=== PATIENT | male | born 1995 | race Caucasian/White ===

== ENCOUNTER 2019-01-17 14:59 | Emergency (ER) | payer BC ==
[2019-01-17 15:07] VITALS: BP 150/69
--- NOTE | 2019-01-17 15:42 | ED Physician Documentation ---
PD HPI UPPER EXT INJURY - Stated complaint Stated Complaint: LT WRIST INJURY - Chief complaint Chief Complaint: Ext Problem - History obtained from History obtained from: Patient, Family, Friend - History of Present Illness Location: Left, Wrist Type of injury: Fall Where injury occurred: Work Timing - onset: Today Timing - duration: Minutes Timing - details: Abrupt onset, Still present Improved by: Rest, Ice, Immobilization Worsened by: Moving, Palpating Associated symptoms: Swelling. No: Weakness, Numbness Contributing factors: No: Anticoagulated, Prior ortho surgery Similar symptoms before: Has not had sx before Recently seen: Not recently seen - Additonal information Additional information: 23-year-old male was up on a scaffolding about 7 feet when he fell from the scaffolding landing on his left side. The majority of the force was absorbed by the left wrist over the ulnar surface. He has swelling and pain over the radial surface and pain with flexion extension of the wrist. He did not injure himself otherwise in the fall he denies any chest pain abdominal pain or hip pain. He did have some contusion to the left calf and foot but states those injuries are minimal. Review of Systems Constitutional: denies: Fever, Chills Eyes: denies: Decreased vision Ears: denies: Ear pain Nose: denies: Congestion Throat: denies: Sore throat Cardiac: denies: Chest pain / pressure, Palpitations Respiratory: denies: Dyspnea, Cough GI: denies: Abdominal Pain, Nausea, Vomiting : denies: Dysuria, Frequency Skin: denies: Rash Musculoskeletal: reports: Extremity pain, Joint pain, Joint swelling. denies: Neck pain, Back pain Neurologic: denies: Generalized weakness, Focal weakness, Numbness PD PAST MEDICAL HISTORY - Past Medical History Past Medical History: No - Past Surgical History Past Surgical History: No - Present Medications Home Medications: Ambulatory Orders Medication Instructions Recorded Confirmed Hydrocodone/Acetaminophen 1 - 2 each PO Q6H PRN #14 tablet 01/17/19 [Hydrocodon-Acetaminophen 5-325] - Allergies Allergies/Adverse Reactions: Allergies Allergy/AdvReac Type Severity Reaction Status Date / Time No Known Drug Allergies Allergy Verified 01/17/19 15:02 - Social History Does the pt smoke?: No Smoking Status: Never smoker Does the pt drink ETOH?: Yes Does the pt have substance abuse?: No - Immunizations Immunizations are current?: Yes PD ED PE NORMAL - Vitals Vital signs reviewed: Yes (hypertensive ) - General General: Alert and oriented X 3, No acute distress, Well developed/nourished - HEENT HEENT: Atraumatic, PERRL, EOMI - Neck Neck: Supple, no meningeal sign - Respiratory Respiratory: No respiratory distress - Derm Derm: Normal color, Warm and dry, No rash - Extremities Extremities: No deformity, Other (There is pain and swelling over the radial surface of the distal left radius. The distal n/v is intact. ) - Neuro Neuro: Alert and oriented X 3, faculty member 2-12 intact, No motor deficit, No sensory deficit, Normal speech Eye Opening: Spontaneous Motor: Obeys Commands Verbal: Oriented GCS Score: 15 - Psych Psych: Normal mood, Normal affect Results - Vitals Vitals: Vital Signs - 24 hr 01/17/19 15:03 Temperature 37.4 C Heart Rate 82 Blood Pressure 150/69 H O2 Saturation 100 Oxygen O2 Source Room air - Rads (name of study) wrist Radiology: Prelim report reviewed (Impression: Ulnar styloid, radial metaphyseal, and scaphoid waist fractures.), EMP read indepedently, See rad report Procedures - Splint (location) wrist left Splint applied by: Tech Type of splint: Fiberglass, Thumb spica, Sugar tong Other: Patient tolerated well, No complications, Neurovascular intact, Good alignment PD MEDICAL DECISION MAKING - ED course Complexity details: reviewed results, re-evaluated patient, considered differential, d/w patient, d/w family ED course: 23-year-old male with a left wrist fracture after fall off a scaffolding has a fracture of the waist of the scaphoid and additional fractures of the distal radius. He is placed into a thumb spica and sugar tong splint and referred to orthopedics for facilitation of hand surgeon consultation. Departure - Departure Disposition: 01 Home, Self Care Clinical Impression: Fracture of navicular bone of hand Qualifiers: Encounter type: initial encounter Scaphoid bone location: middle third Fracture type: closed Fracture alignment: displaced Laterality: left Qualified Code(s): S62.022A - Displaced fracture of middle third of navicular [scaphoid] bone of left wrist, initial encounter for closed fracture Distal radius fracture, left Qualifiers: Encounter type: initial encounter Fracture type: closed Fracture morphology: other fracture Qualified Code(s): S52.592A - Other fractures of lower end of left radius, initial encounter for closed fracture Condition: Stable Instructions: ED Fx Wrist Navicular Conf Follow-Up: [facility] [Provider Group] Prescriptions: Hydrocodone/Acetaminophen [Hydrocodon-Acetaminophen 5-325] 1 - 2 each PO Q6H PRN #14 tablet PRN Reason: pain Comments: The fracture you have will likely need a surgical repair of the scaphoid. This will need to be done by a hand surgeon. Follow up with the orthopedic clinic for help in facilitating a visit to the hand surgeon. Forms: Activity restrictions
--- NOTE | 2019-01-17 15:55 | XRAY Report ---
Reason: radial wrist injury Procedure Date: 01/17/2019 Accession Number: [id number] / [id number] Procedure: XR - Wrist 3 View LT CPT Code: FULL RESULT: EXAM: LEFT WRIST RADIOGRAPHY EXAM DATE: 01/17/2019 03:25 PM. CLINICAL HISTORY: Fall. Radial wrist injury. Pain and swelling. COMPARISON: None. TECHNIQUE: 3 views. FINDINGS: Bones: Scaphoid waist fracture. Displaced radial styloid tip fracture. Comminuted dorsally impacted radial metaphyseal fracture with intra-articular extension. Joints: Normal. No subluxations. Soft Tissues: Associated soft tissue swelling. IMPRESSION: Ulnar styloid, radial metaphyseal, and scaphoid waist fractures. RADIA
== END 2019-01-17 16:25 | disposition home or self-care (01) ==
LOC: ED 14:59
DX: S62.022A Displaced fracture of middle third of navicular [scaphoid] bone of left wrist, initial encounter for closed fracture (principal); S52.592A Other fractures of lower end of left radius, initial encounter for closed fracture; W17.89XA Other fall from one level to another, initial encounter; Y99.0 Civilian activity done for income or pay
CPT/HCPCS: 29125; 99283

== ENCOUNTER 2020-11-20 08:00 | Outpatient (CLI) | payer BC | END 2020-11-20 08:01 | disposition home or self-care (01) | LOC: COV 08:00 | PROVIDERS: ATTEND Family Medicine | DX: Z20.822 Contact with and (suspected) exposure to COVID-19 (principal) ==

== ENCOUNTER 2023-06-14 11:18 | Emergency (ER) | payer OTHER ==
[2023-06-14 11:33] VITALS: BP 178/93; O2SAT 99
--- NOTE | 2023-06-14 11:36 | ED Physician Documentation ---
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 Fell off and landed directly on the left, nondominant elbow. It is an isolated injury. Declines pain medication on initial evaluation.) PD PAST MEDICAL HISTORY - Past Surgical History Past Surgical History: No - Present Medications Home Medications: Ambulatory Orders Medication Instructions Recorded Confirmed Hydrocodone/Acetaminophen 1 - 2 each PO Q6H PRN #14 tablet 01/17/19 [Hydrocodon-Acetaminophen 5-325] - Allergies Allergies/Adverse Reactions: Allergies Allergy/AdvReac Type Severity Reaction Status Date / Time No Known Drug Allergies Allergy Verified 06/14/23 11:27 - Social History Does the pt smoke?: No Smoking Status: Never smoker Does the pt drink ETOH?: Yes Does the pt have substance abuse?: No - Immunizations Immunizations are current?: Yes PD ED PE NORMAL - Vitals Vital signs reviewed: Yes - General General: Alert and oriented X 3, No acute distress - HEENT HEENT: EOMI, Other (Slight anisocoria, left larger than right, patient states pre-existing) - Neck Neck: Supple, no meningeal sign, No bony TTP - Cardiac Cardiac: RRR, No murmur - Respiratory Respiratory: No respiratory distress, Clear bilaterally - Abdomen Abdomen: Non tender - Back Back: No CVA TTP, No spinal TTP - Derm Derm: Normal color, Warm and dry - Extremities Extremities: Other (see mdm- text box too small) - Neuro Neuro: Alert and oriented X 3, Normal speech Results - Vitals Vitals: Vital Signs - 24 hr 06/14/23 11:22 Temperature 36.8 C Heart Rate 97 Respiratory 16 Rate Blood Pressure 178/93 H O2 Saturation 99 Oxygen O2 Source Room air - Labs Labs: Laboratory Tests 06/14/23 06/14/23 06/14/23 12:12 12:12 12:12 WBC 8.5 RBC 5.33 Hgb 15.5 Hct 47.0 MCV 88.2 MCH 29.1 MCHC 33.0 RDW 12.8 Plt Count 247 MPV 11.3 Neut # (Auto) 6.4 Lymph # (Auto) 1.4 L Woods # (Auto) 0.6 Eos # (Auto) 0.1 Baso # (Auto) 0.0 Absolute Nucleated RBC 0.00 Nucleated RBC % 0.0 PT 11.8 INR 1.1 Sodium 140 Potassium 3.7 Chloride 104 Carbon Dioxide 29 Anion Gap 7.0 BUN 13 Creatinine 1.0 Estimated GFR (MDRD) 90 Glucose 106 H Calcium 9.8 Procedures - Splint (location) - Minor LUE Splint applied by: Physician Type of splint: Fiberglass, Long arm, Posterior Other: Patient tolerated well, No complications, Sling provided PD Medical Decision Making - ED course ED course: LUE exam: Significant swelling over the left olecranon bursa consistent with hematoma with limited range of motion related to same. Over the medial and left lateral epicondyles there really is no tenderness. There is an abrasion over the bursa. No tenderness at the shoulder or wrist. Normal radial pulses and sensation in the hand. 28-year-old gentleman with isolated left elbow injury. There is an abrasion over the olecranon but pretty shallow, not representing an open fracture. Imaging shows complex comminuted olecranon fracture and Case discussed by phone with our orthopedist, Dr. Virk who recommends transfer to [facility] given the complexity. He was excepted to [facility] ED by orthopedic traumatologist, Dr. Marco Sánchez and cobras are completed. Patient repeatedly declined any pain medication for this. He Departure - Departure Disposition: 02 Transfer Acute Care Hosp Clinical Impression: Fracture of left olecranon process Qualifiers: Encounter type: initial encounter Fracture type: closed Qualified Code(s): S52.022A - Displaced fracture of olecranon process without intraarticular extension of left ulna, initial encounter for closed fracture Condition: Serious Forms: PCP List
[2023-06-14] MEDS: TETANUS/DIPHTHERIA/PERTUSSIS 0.5 ML SYRINGE IM ONE ×2 (11:55→11:59)
--- NOTE | 2023-06-14 12:00 | XRAY Report ---
PROCEDURE: Elbow 3 View LT INDICATIONS: elbow inj TECHNIQUE: 3 views of the elbow were acquired. COMPARISON: None. FINDINGS: Bones: Acute comminuted fracture involving olecranon is seen with proximal and dorsal displacement o f fractured fragments and up to 1.9 cm diastases at fracture site. No suspicious bony lesions. Soft tissues: No significant effusion. No suspicious soft tissue calcifications or masses. Signifi cant dorsal elbow soft tissue swelling is seen. IMPRESSION: Acute comminuted and displaced proximal olecranon fracture with dorsal soft tissue swelling. Reviewed by: Pb Klein MD on 06/14/2023 11:58 AM PDT Approved by: Pb Klein MD on 06/14/2023 11:58 AM PDT Station ID: [id number]
[2023-06-14 12:18] LABS: BASOPHILS % (AUTO) 0.4 %; EOSINOPHILS # (AUTO) 0.1 10^3/uL (0.0-0.7); EOSINOPHILS % (AUTO) 0.6 %; HGB - HEMOGLOBIN 15.5 g/dL (14.0-18.0); LYMPHOCYTES # (AUTO) 1.4 10^3/uL (1.5-3.5); LYMPHOCYTES % (AUTO) 16.2 %; MEAN CORPUSCULAR HEMOGLOBIN 29.1 pg (27.0-31.0); MEAN CORPUSCULAR VOLUME 88.2 fL (80.0-94.0); MEAN PLATELET VOLUME 11.3 fL (7.4-11.4); MONOCYTES # (AUTO) 0.6 10^3/uL (0.0-1.0); MONOCYTES % (AUTO) 6.5 %; NEUTROPHILS # (AUTO) 6.4 10^3/uL (1.5-6.6); NEUTROPHILS % (AUTO) 75.6 %; PLT - PLATELET COUNT 247 10^3/uL (130-450); RED BLOOD COUNT 5.33 10^6/uL (4.70-6.10); RED CELL DISTRIBUTION WIDTH 12.8 % (12.0-15.0); WHITE BLOOD COUNT 8.5 x10^3/uL (4.8-10.8)
[2023-06-14 12:23] LABS: INR 1.1 (0.8-1.2); PT - PROTHROMBIN TIME 11.8 secs (9.9-12.6)
[2023-06-14 12:30] LABS: CALCIUM 9.8 mg/dL (8.5-10.3); POTASSIUM 3.7 mmol/L (3.5-4.5)
[2023-06-14] MEDS ORDERED: IBUPROFEN 800 MG TABLET PO STA (15:16)
[2023-06-14] MEDS ORDERED: oxyCODONE 5 MG TABLET PO STA (15:16)
== END 2023-06-14 15:30 | disposition short-term general hospital (02) ==
LOC: ED 11:18
DX: S52.022A Displaced fracture of olecranon process without intraarticular extension of left ulna, initial encounter for closed fracture (principal); W17.89XA Other fall from one level to another, initial encounter; Y99.0 Civilian activity done for income or pay; Z23 Encounter for immunization; Z20.822 Contact with and (suspected) exposure to COVID-19
CPT/HCPCS: 1040M; 29105; 36415; 73080; 80048; 85025; 85610; 87635; 90715; 99284; 99285; A9270

== ENCOUNTER 2023-06-26 07:39 | Emergency (ER) | payer BC, OTHER ==
[2023-06-26] MEDS ORDERED: KETOROLAC 60 MG/2 ML VIAL IM STA (08:20)
[2023-06-26] MEDS ORDERED: ONDANSETRON ODT 4 MG TABLET TL STA (08:20)
[2023-06-26] MEDS ORDERED: HYDROmorphone 1 MG/ML CARPUJECT IM STA (08:20)
[2023-06-26 08:34] VITALS: O2SAT 100
--- NOTE | 2023-06-26 10:06 | ED Physician Documentation ---
History of Present Illness - Stated complaint Stated Complaint: COMPLICATIONS FROM SURGERY - Chief complaint Chief Complaint: Ext Problem - History obtained from History obtained from: Patient, Family - History of Present Illness Timing: Today - Additonal information Additional information: 28-year-old Rafiq 8Haight fell off of a roof on 14 June. He was evaluated here and sent to [facility] for a comminuted fracture of the left olecranon. 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 He has been taking 1000 mg of acetaminophen and 5 mg of oxycodone for pain control. He had his last dose at 5:30 AM. Review of Systems Constitutional: denies: Fever Ears: denies: Ear pain Nose: denies: Congestion Throat: denies: Sore throat Respiratory: denies: Cough GI: denies: Vomiting, Diarrhea : denies: Dysuria, Frequency PD PAST MEDICAL HISTORY - Past Medical History Past Medical History: Yes - Past Surgical History Past Surgical History: No Ortho: Other - Present Medications Home Medications: Ambulatory Orders Medication Instructions Recorded Confirmed Hydrocodone/Acetaminophen 1 - 2 each PO Q6H PRN #14 tablet 01/17/19 [Hydrocodon-Acetaminophen 5-325] - Allergies Allergies/Adverse Reactions: Allergies Allergy/AdvReac Type Severity Reaction Status Date / Time No Known Drug Allergies Allergy Verified 06/14/23 11:27 - Social History Does the pt smoke?: No Smoking Status: Never smoker Does the pt drink ETOH?: Yes Does the pt have substance abuse?: No - Immunizations Immunizations are current?: Yes - POLST Patient has POLST: No PD ED PE NORMAL - Vitals Vital signs reviewed: Yes (hpyertensive) - General General: Alert and oriented X 3, Well developed/nourished, Other (appears uncomfortable ) - HEENT HEENT: Atraumatic, PERRL, EOMI - Cardiac Cardiac: RRR, No murmur - Respiratory Respiratory: No respiratory distress, Clear bilaterally - Abdomen Abdomen: Normal bowel sounds, Soft, Non tender - Back Back: No CVA TTP, No spinal TTP - Derm Derm: Normal color, Warm and dry, No rash - Extremities Extremities: Other (The dressing and splint is taken off of the patient's elbow and examined. He did have some oozing of blood into the dressing. No signs of infection or dehiscence.) - Neuro Neuro: Alert and oriented X 3, recooperer 2-12 intact, No motor deficit, No sensory deficit, Normal speech Eye Opening: Spontaneous Motor: Obeys Commands Verbal: Oriented GCS Score: 15 - Psych Psych: Normal mood, Normal affect Results - Vitals Vitals: Vital Signs - 24 hr 06/26/23 06/26/23 06/26/23 07:47 08:31 10:18 Temperature 37.0 C Heart Rate 81 108 H 78 Respiratory 20 20 20 Rate Blood Pressure 160/95 H 152/95 H 152/55 H O2 Saturation 99 100 100 Oxygen O2 Source Room air Procedures - Splint (location) - Minor Left elbow Splint applied by: Tech Type of splint: Fiberglass, Posterior Other: Patient tolerated well, No complications, Neurovascular intact, Good alignment, Sling provided PD Medical Decision Making - ED course Complexity details: reviewed results, re-evaluated patient, considered differential, d/w patient, d/w family ED course: 28-year-old male with surgery yesterday appears to be markedly underdosed on narcotic for pain control of acute postoperative pain. Here in the emergency department we provided Dilaudid and Toradol with marked improvement in the patient's pain we reduced the dressing that was soaked with blood that had been oozing from the wound. There is no evidence of dehiscence or infection to the wound dressing was replaced and a splint applied. We have encouraged the patient to increase his use of narcotic and to use the naproxen regularly. Departure - Departure Disposition: 01 Home, Self Care Clinical Impression: Postoperative pain Condition: Stable Instructions: NARCOTIC, Oral, ANTI-INFLAMMATORY, General Follow-Up: Your, surgeon [Other] Comments: Rafiq, today it looks like you lost control of your postoperative pain and we were able to provide some relief with some intramuscular Dilaudid and Toradol. It looks like you may have been underdosing your self for acute pain. Postoperatively for the first 3 days we expect pain to require some pain medication. You have some oxycodone 5 mg tablets that been prescribed you take 1 or 2 of them as often as every 4 hours and take this with Tylenol as it will work better. Take the naproxen twice per day regularly with food. Your wound looks intact without signs of infection. Leave the splint in place until follow up with your surgeon. Forms: PCP List Discharge Date/Time: 06/26/23 10:32
[2023-06-26 10:29] VITALS: BP 152/55
== END 2023-06-26 10:32 | disposition home or self-care (01) ==
LOC: ED 07:39
DX: G89.18 Other acute postprocedural pain (principal)
CPT/HCPCS: 29105; 96372; 99283; J1170; Q0162